=== PATIENT | female | born 1985 | race Caucasian/White ===

== ENCOUNTER 2022-08-17 23:30 | Emergency (ER) | payer MEDICAID ==
[~2022-08-17] VITALS: Ht 170.2 cm; Wt 59.0 kg
[2022-08-17 23:40] VITALS: BP 116/70
== END 2022-08-18 04:04 | disposition left against medical advice (07) ==
LOC: ER 23:30
DX: Z53.21 Procedure and treatment not carried out due to patient leaving prior to being seen by health care provider (principal)